=== PATIENT | male | born 1975 | race Caucasian/White ===

== ENCOUNTER 2018-01-12 20:18 | Emergency (ER) | payer SELFPAY ==
[~2018-01-12] VITALS: Ht 170.2 cm; Wt 75.0 kg
[2018-01-12] MEDS ORDERED: MORPHINE SULFATE 4 MG/ML CPJ (NOT FOR IM USE) IV STA (21:32)
[2018-01-12] MEDS ORDERED: SODIUM CHLORIDE 0.9% 1,000 ML IV ONE (21:32)
[2018-01-12] MEDS ORDERED: KETOROLAC 30MG/ML VIAL IV STA (21:32)
[2018-01-12] MEDS ORDERED: ONDANSETRON HCL 4MG/2ML INJ IV STA (21:32)
[2018-01-12] MEDS ORDERED: TETANUS, DIPHTHERIA, PERTUSSIS VAC/PF 0.5ML (>7YR OLD) IM ONE (21:45)
[2018-01-12] MEDS ORDERED: BACITRACIN ZINC OINT UDPKT TOP ONE (21:45)
[2018-01-12 23:00] LABS: CLARITY URINE CLEAR (CLEAR); COLOR URINE YELLOW (YELLOW); KETONES URINE NEGATIVE (NEGATIVE); LEUKOCYTE ESTERASE URINE NEGATIVE (NEGATIVE); NITRITE URINE NEGATIVE (NEGATIVE); OCCULT BLOOD URINE NEGATIVE (NEGATIVE); PROTEIN URINE 2+ (NEGATIVE); SPECIFIC GRAVITY URINE 1.007 (1.005-1.030); UROBILINOGEN URINE 0.2 E.U./dL (0.2-1.0)
[2018-01-12 23:10] LABS: BASOPHILS % 0.8 % (0.0-2.0); EOSINOPHILS % 0.9 % (0.0-5.0); HEMATOCRIT. 43.4 % (42.0-52.0); HEMOGLOBIN. 15.1 g/dL (14.0-18.0); LYMPHOCYTES % 28.8 % (20.0-50.0); MEAN CORPUSCULAR HEMOGLOBIN 31.6 pg (28.0-32.0); MEAN CORPUSCULAR VOLUME 90.9 fL (80.0-94.0); MEAN PLATELET VOLUME 7.2 fl (7.4-10.4); MONOCYTES % 4.3 % (2.0-8.0); NEUTROPHILS % 65.2 % (40.0-76.0); PLATELET 318 x1000/uL (130-400); RED BLOOD CELL COUNT 4.78 mill/uL (4.7-6.1); RED CELL DISTRIBUTION WIDTH 13.2 % (11.6-14.6)
[2018-01-12 23:12] LABS: CHLORIDE 108 mEq/L (98-107)
[2018-01-12 23:14] LABS: INR 1.1; PROTHROMBIN TIME 10.9 sec (9.1-11.1)
[2018-01-12 23:15] LABS: *AMPHETAMINES SCREEN URINE NEGATIVE (NEGATIVE); *BARBITURATES SCREEN URINE NEGATIVE (NEGATIVE); *BENZODIAZEPINES SCREEN URINE NEGATIVE (NEGATIVE); *COCAINE SCREEN URINE NEGATIVE (NEGATIVE); CANNABINOID URINE SCREEN NEGATIVE (NEGATIVE)
[2018-01-12 23:16] LABS: METHADONE URINE SCREEN NEGATIVE (NEGATIVE); OPIATES URINE SCREEN NEGATIVE (NEGATIVE); PHENCYCLIDINE URINE SCREEN NEGATIVE (NEGATIVE)
[2018-01-12 23:22] LABS: ETHANOL BLOOD 290 mg/dL
[2018-01-13] MEDS ORDERED: BACITRACIN ZINC OINT UDPKT TOP ONE (01:15)
[2018-01-13 06:50] VITALS: BP 128/76
== END 2018-01-13 07:15 | disposition home or self-care (01) ==
LOC: ER 20:41
DX: T51.0X1A Toxic effect of ethanol, accidental (unintentional), initial encounter (principal); S60.032A Contusion of left middle finger without damage to nail, initial encounter; S00.31XA Abrasion of nose, initial encounter; S09.8XXA Other specified injuries of head, initial encounter; Y08.89XA Assault by other specified means, initial encounter; Y93.89 Activity, other specified; Y92.89 Other specified places as the place of occurrence of the external cause; Y99.8 Other external cause status
CPT/HCPCS: 36415; 70450; 71045; 80053; 80305; 81003; 85025; 85610; 90471; 90715; 96374; 96375; 99285; G0482; J1885; J2270; J2405; J7030; Z7610

== ENCOUNTER 2019-12-19 14:41 | Emergency (ER) | payer SELFPAY ==
[~2019-12-19] VITALS: Ht 167.6 cm; Wt 73.0 kg
[2019-12-19] MEDS ORDERED: SODIUM CHLORIDE 0.9% 1,000 ML IV ONE (15:15)
[2019-12-19] MEDS ORDERED: KETAMINE HCL 50 MG/ML 10ML IM ONE (15:45)
[2019-12-19 16:11] LABS: BASOPHILS % 0.7 % (0.0-2.0); EOSINOPHILS % 0.2 % (0.0-5.0); HEMATOCRIT. 40.7 % (42.0-52.0); HEMOGLOBIN. 13.9 g/dL (14.0-18.0); LYMPHOCYTES % 24.2 % (20.0-50.0); MEAN CORPUSCULAR HEMOGLOBIN 30.6 pg (28.0-32.0); MEAN CORPUSCULAR VOLUME 89.8 fL (80.0-94.0); MEAN PLATELET VOLUME 7.8 fl (7.4-10.4); MONOCYTES % 11.4 % (2.0-8.0); NEUTROPHILS % 63.5 % (40.0-76.0); PLATELET 170 x1000/uL (130-400); RED BLOOD CELL COUNT 4.53 mill/uL (4.7-6.1); RED CELL DISTRIBUTION WIDTH 13.8 % (11.6-14.6)
[2019-12-19 16:41] LABS: CHLORIDE 106 mEq/L (98-107)
[2019-12-19 16:45] LABS: ETHANOL BLOOD < 10 mg/dL
[2019-12-19] MEDS ORDERED: LORAZEPAM 2MG/ML CPJ IV ONE ×2 (17:45→19:15)
[2019-12-19] MEDS ORDERED: HALOPERIDOL LACTATE 5MG/ML VIAL IM ONE (21:15)
[2019-12-20 06:30] VITALS: BP 129/86
== END 2019-12-20 09:05 | disposition home or self-care (01) ==
LOC: ER 14:48
DX: R41.82 Altered mental status, unspecified (principal)
CPT/HCPCS: 36415; 70450; 80053; 80320; 82962; 85025; 96361; 96372; 96374; 99285; J1630; J2060; J3490; J7030; G0480

== ENCOUNTER 2024-08-28 02:19 | Inpatient (IN) | payer MEDICAID, OTHER ==
[~2024-08-28] VITALS: Ht 160 cm; Wt 76.8 kg
[2024-08-28 02:21] VITALS: O2SAT 100
[2024-08-28 03:39] LABS: BASOPHILS % 0.3 % (0.0-2.0); EOSINOPHILS % 0.4 % (0.0-5.0); HEMATOCRIT. 39.1 % (42.0-52.0); HEMOGLOBIN. 13.2 g/dL (14.0-18.0); LYMPHOCYTES % 22.8 % (20.0-50.0); MEAN CORPUSCULAR HEMOGLOBIN 29.4 pg (28.0-32.0); MEAN CORPUSCULAR HGB CONC 33.9 g/dL (31.0-37.0); MEAN CORPUSCULAR VOLUME 86.6 fL (80.0-94.0); MEAN PLATELET VOLUME 7.5 fl (7.4-10.4); MONOCYTES % 9.4 % (2.0-8.0); NEUTROPHILS % 67.1 % (40.0-76.0); PLATELET 193 x1000/uL (130-400); RED BLOOD CELL COUNT 4.51 mill/uL (4.7-6.1); RED CELL DISTRIBUTION WIDTH 13.6 % (11.6-14.6); WHITE BLOOD COUNT 4.4 x1000/uL (4.5-11.0)
[2024-08-28] MEDS: ONDANSETRON HCL 4MG/2ML INJ IV STA (03:42)
[2024-08-28 03:45] LABS: CHLORIDE 103 mEq/L (98-107); POTASSIUM 3.9 mEq/L (3.5-5.1); SODIUM 138 mEq/L (136-145)
[2024-08-28 03:46] LABS: CALCIUM 8.7 mg/dL (8.7-10.4); CARBON DIOXIDE 24 mEq/L (21-32)
[2024-08-28] MEDS: KETOROLAC 30MG/ML VIAL IV STA (03:49)
[2024-08-28] MEDS: SODIUM CHLORIDE 0.9% 1,000 ML IV ONE (03:50)
[2024-08-28 03:51] LABS: CREATININE 0.7 mg/dL (0.6-1.3); GLUCOSE 142 mg/dL (70-105); UREA NITROGEN BLOOD 12 mg/dL (9-23)
[2024-08-28 03:52] LABS: ETHANOL BLOOD 16 mg/dL (<10)
[2024-08-28 03:53] LABS: ALANINE AMINOTRANSFERASE 93 IU/L (10-49); ALBUMIN 4.3 g/dL (3.2-4.8); ASPARTATE AMINOTRANSFERASE 87 IU/L (<34); BILIRUBIN DIRECT 0.3 mg/dL (<=3.0); PROTEIN TOTAL 7.4 g/dL (6.0-8.3); TROPONIN I HIGH SENSITIVITY 4 ng/L (3.0-53)
[2024-08-28] MEDS ORDERED: ONDANSETRON HCL 4MG/2ML INJ IV PRN (05:00)
[2024-08-28] MEDS ORDERED: MAGNESIUM/ALUMINUM HYDROXIDE/SIMETHICONE 30ML UDC PO PRN (05:00)
[2024-08-28] MEDS ORDERED: LORAZEPAM 2MG/ML UD SYRINGE IV PRN (05:00)
[2024-08-28] MEDS ORDERED: GUAIFENESIN 200MG/10ML SUGAR FREE UDC PO PRN (05:00)
[2024-08-28] MEDS ORDERED: DOCUSATE SODIUM 100MG CAPSULE PO PRN (05:00)
[2024-08-28] MEDS ORDERED: ACETAMINOPHEN 325MG TABLET PO PRN ×2 (05:00)
[2024-08-28] MEDS ORDERED: CLONIDINE 0.1MG TABLET PO PRN (05:00)
[2024-08-28] MEDS ORDERED: IPRATROPIUM/ALBUTEROL 0.5-3(2.5)MG/3ML NEB HHN PRN (05:00)
[2024-08-28 05:34] LABS: TROPONIN I HIGH SENSITIVITY 5 ng/L (3.0-53)
[2024-08-28] MEDS ORDERED: NITROGLYCERIN 0.4MG TABLET SL SL PRN (05:45)
[2024-08-28 06:13] LABS: PHOSPHORUS 1.9 mg/dL (2.5-4.9)
[2024-08-28] MEDS ORDERED: IOHEXOL-300 100 ML BOTTLE ONE (06:58)
[2024-08-28] MEDS ORDERED: CHLORDIAZEPOXIDE 25MG CAPSULE PO PRN ×2 (07:30)
[2024-08-28 08:00] VITALS: BP 151/82; PULSE 109; RESP 20; TEMP 36.4; O2SAT 96
[2024-08-28] MEDS ORDERED: HYDRALAZINE 20MG/ML VIAL IV PRN (08:15)
[2024-08-28] MEDS: CHLORDIAZEPOXIDE 25MG CAPSULE PO PRN (08:43)
[2024-08-28] MEDS: MVI, ADULT NO.1 10 ML, FOLIC ACID 1 MG, THIAMINE HCL 100 MG in SODIUM CHLORIDE 0.9% 1,0... IV SCH (08:59)
[2024-08-28 10:00] VITALS: BP 151/82; PULSE 109; RESP 20; TEMP 36.4
[2024-08-28] MEDS: THIAMINE HCL 100MG TABLET PO SCH (10:27)
[2024-08-28] MEDS: FOLIC ACID 1MG TABLET PO SCH (10:28)
[2024-08-28] MEDS: AMLODIPINE 5MG TABLET PO SCH (10:28)
[2024-08-28 12:00] VITALS: BP 124/66; PULSE 89; RESP 18; TEMP 36.8; O2SAT 96
[2024-08-28 12:10] LABS: TROPONIN I HIGH SENSITIVITY 4 ng/L (3.0-53)
[2024-08-28] MEDS: SODIUM PHOSPHATE 15 MMOL in DEXT 5% WATER 245 ML IV NR (12:26)
[2024-08-28 16:00] VITALS: BP 138/79; PULSE 90; PULSE 91; RESP 18; TEMP 36.5; O2SAT 99
[2024-08-28 20:00] VITALS: BP 156/79; PULSE 106; RESP 18; TEMP 36.7; O2SAT 99
[2024-08-29 04:00] VITALS: BP 110/42; PULSE 80; RESP 18; TEMP 36.7; O2SAT 98
[2024-08-29 06:50] LABS: BASOPHILS % 0.3 % (0.0-2.0); EOSINOPHILS % 2.3 % (0.0-5.0); HEMATOCRIT. 35.8 % (42.0-52.0); HEMOGLOBIN. 12.1 g/dL (14.0-18.0); LYMPHOCYTES % 32.2 % (20.0-50.0); MEAN CORPUSCULAR HEMOGLOBIN 29.3 pg (28.0-32.0); MEAN CORPUSCULAR HGB CONC 33.8 g/dL (31.0-37.0); MEAN CORPUSCULAR VOLUME 86.7 fL (80.0-94.0); MEAN PLATELET VOLUME 7.8 fl (7.4-10.4); MONOCYTES % 10.1 % (2.0-8.0); NEUTROPHILS % 55.1 % (40.0-76.0); PLATELET 177 x1000/uL (130-400); RED BLOOD CELL COUNT 4.13 mill/uL (4.7-6.1); RED CELL DISTRIBUTION WIDTH 13.6 % (11.6-14.6); WHITE BLOOD COUNT 4.9 x1000/uL (4.5-11.0)
[2024-08-29 06:54] LABS: AMMONIA 40 uMol/L (<32)
[2024-08-29 07:15] LABS: CALCIUM 8.2 mg/dL (8.7-10.4); CARBON DIOXIDE 25 mEq/L (21-32); CHLORIDE 104 mEq/L (98-107); POTASSIUM 3.8 mEq/L (3.5-5.1); SODIUM 140 mEq/L (136-145)
[2024-08-29 07:20] LABS: T4 FREE 0.97 ng/dL (0.89-1.76); THYROID STIMULATING HORMONE 4.64 uIU/mL (0.55-4.78)
[2024-08-29 07:21] LABS: CREATININE 0.7 mg/dL (0.6-1.3); GLUCOSE 98 mg/dL (70-105); TRIGLYCERIDE 137 mg/dL (0-150); UREA NITROGEN BLOOD 15 mg/dL (9-23)
[2024-08-29 07:22] LABS: LDL CHOLESTEROL 99 mg/dL (5-100)
[2024-08-29 07:23] LABS: CHOLESTEROL 159 mg/dL (<200); HDL CHOLESTEROL 46 mg/dL (>55); PHOSPHORUS 3.3 mg/dL (2.5-4.9)
== END 2024-08-29 07:50 | disposition left against medical advice (07) | DRG 812 ==
LOC: ER 02:19 → EDBEDREQSVC 03:53 → EDBEDREQTM 03:53 → 5WST 03:55
PROVIDERS: ADMIT Internal Medicine; ATTEND Internal Medicine
DX: T50.991A Poisoning by other drugs, medicaments and biological substances, accidental (unintentional), initial encounter (principal); G92.8 Other toxic encephalopathy; E83.39 Other disorders of phosphorus metabolism; K29.70 Gastritis, unspecified, without bleeding; K21.9 Gastro-esophageal reflux disease without esophagitis; R00.0 Tachycardia, unspecified; F10.129 Alcohol abuse with intoxication, unspecified; Y90.9 Presence of alcohol in blood, level not specified; I10 Essential (primary) hypertension; G40.89 Other seizures; Z53.29 Procedure and treatment not carried out because of patient's decision for other reasons; Y92.89 Other specified places as the place of occurrence of the external cause; Z86.711 Personal history of pulmonary embolism
CPT/HCPCS: 36415; 71045; 74177; 80048; 80061; 80076; 80320; 82140; 83605; 83735; 84100; 84439; 84443; 84484; 85025; 85379; 93005; 96361; 96374; 96375; 99285; A4606; J1885; J2060; J2405; J3411; J3490; J7030; J7060; Q9967; G0480